=== PATIENT | male | born 1955 | race Caucasian/White ===

== ENCOUNTER 2018-06-30 04:43 | Inpatient (IN) | payer OTHER ==
[2018-06-30] MEDS: DEXTROSE 5%-0.45% NACL 1,000 ML IV (05:24)
[2018-06-30] MEDS ORDERED: DOCUSATE SODIUM 100 MG CAP PO (05:30)
[2018-06-30] MEDS ORDERED: morphine 2 MG INJ IV (05:30)
[2018-06-30] MEDS ORDERED: ONDANSETRON 4 MG INJ IV (05:30)
[2018-06-30] MEDS ORDERED: ACETAMINOPHEN 325 MG TAB PO (05:30)
[2018-06-30] MEDS ORDERED: HYDROCODONE/APAP (5/325) TAB PO (05:30)
[2018-06-30] MEDS ORDERED: NITROGLYCERIN (SL) 0.4 MG TAB SL (05:30)
[2018-06-30] MEDS ORDERED: NACL 0.9% 3 ML SYG IV (05:30)
[2018-06-30] MEDS ORDERED: MAGNESIUM HYDROXIDE 30ML CUP PO (05:30)
[2018-06-30] MEDS ORDERED: GLUCAGON 1 MG INJ IM (06:30)
[2018-06-30] MEDS ORDERED: DEXTROSE 50% 50 ML SYRINGE IV ×2 (06:30)
[2018-06-30] MEDS ORDERED: GLUCOSE GEL 15 GRAM TUBE BUCCAL (06:30)
[2018-06-30] MEDS ORDERED: GLUCOSE GEL 15 GRAM TUBE PO ×2 (06:30)
[2018-06-30 06:35] LABS: ADD MAN DIFF? NO
[2018-06-30 06:42] LABS: WHITE BLOOD COUNT 11.1 10^3/ul (4.8-10.8)
[2018-06-30 06:42] LABS: BASOPHIL # 0.1 10^3/ul (0.0-0.1); BASOPHILS % 0.9 % (0.0-2.0); EOSINOPHILS # 0.4 10^3/ul (0.0-0.5); EOSINOPHILS % 3.2 % (0.0-7.0); HEMATOCRIT 48.6 % (42.0-52.0); HEMOGLOBIN 16.7 g/dl (14.0-18.0); LYMPHOCYTES # 2.2 10^3/ul (0.8-2.9); LYMPHOCYTES % 19.6 % (15.0-51.0); MEAN CORPUSCULAR HEMOGLOBIN 29.8 pg (29.0-33.0); MEAN CORPUSCULAR HGB CONC 34.4 g/dl (32.0-37.0); MEAN CORPUSCULAR VOLUME 86.8 fl (82.0-101.0); MEAN PLATELET VOLUME 9.6 fl (7.4-10.4); MONOCYTE # 0.9 10^3/ul (0.3-0.9); MONOCYTES % 7.9 % (0.0-11.0); NEUTROPHIL # 7.4 10^3/ul (1.6-7.5); NEUTROPHILS % 66.9 % (39.0-77.0); PLATELET COUNT 322 10^3/UL (140-415); RED CELL DISTRIBUTION WIDTH 13.2 % (11.5-14.5)
[2018-06-30 07:08] LABS: CREATINE KINASE 41 IU/L (23-200)
[2018-06-30 07:15] LABS: ANION GAP 16 (5-13); BLOOD UREA NITROGEN 14 mg/dl (7-20); CALCIUM 9.6 mg/dl (8.4-10.2); CARBON DIOXIDE 28 mmol/L (21-31); CHLORIDE 97 mmol/L (97-110); CHOL/HDL RATIO 9.2 RATIO; CHOLESTEROL 184 mg/dl (100-200); CREATININE 0.84 mg/dl (0.61-1.24); Estimated GFR > 60 mL/min (>60); GLUCOSE 117 mg/dl (70-220); HDL CHOLESTEROL 20 mg/dl (30-78); LDL CHOLESTEROL,CALCULATED 77 mg/dl; MAGNESIUM 1.7 mg/dl (1.7-2.5); POTASSIUM 4.4 mmol/L (3.5-5.1); SODIUM 141 mmol/L (135-144); TRIGLYCERIDES 435 mg/dl (0-149)
[2018-06-30 07:19] LABS: CK INDEX 1.8; CK-MB 0.72 ng/ml (0.0-2.4); TROPONIN-I < 0.012 ng/ml (0.000-0.120)
[2018-06-30] MEDS: INSULIN ASPART [NOVOLOG] 3 ML PEN SC ×2 (08:00→11:49)
[2018-06-30] MEDS: ASPIRIN 81 MG TAB PO (08:36)
[2018-06-30] MEDS: METOPROLOL 50 MG TAB PO (08:36)
[2018-06-30] MEDS: DONEPEZIL 5 MG TAB PO (08:36)
[2018-06-30] MEDS: LOSARTAN 50 MG TAB PO (08:37)
[2018-06-30] MEDS: FAMOTIDINE 20 MG TAB PO (08:37)
[2018-06-30] MEDS: ENOXAPARIN 40 MG/0.4 ML SYG SC (09:10)
[2018-06-30 09:55] LABS: HEMOGLOBIN A1C 6.8 % (0-5.9)
[2018-06-30 12:01] LABS: CREATINE KINASE 38 IU/L (23-200)
[2018-06-30 12:14] LABS: CK INDEX 1.2; CK-MB 0.46 ng/ml (0.0-2.4); TROPONIN-I < 0.012 ng/ml (0.000-0.120)
[2018-06-30] MEDS ORDERED: TAMSULOSIN (SR) 0.4 MG CAP PO (21:00)
[2018-06-30] MEDS ORDERED: ATORVASTATIN 10 MG TAB PO (21:00)
== END 2018-06-30 13:59 | disposition home or self-care (01) | DRG 313 ==
LOC: 6WM 04:43
DX: R07.9 Chest pain, unspecified (principal); E11.9 Type 2 diabetes mellitus without complications; I10 Essential (primary) hypertension; N40.0 Benign prostatic hyperplasia without lower urinary tract symptoms
CPT/HCPCS: 80048; 80061; 82550; 82553; 82962; 83036; 83735; 84443; 84484; 85025; 93306